=== PATIENT | male | born 2000 | race Caucasian/White ===

== ENCOUNTER → 2020-10-18 08:33 | Outpatient (CLI) | payer OTHER, SELFPAY ==
--- NOTE | ~2020-10-18 | MR_ITS ---
EXAMINATION: MR knee LT wo con DATE: 10/18/2020 09:53 INDICATION: Acute onset left knee pain TECHNIQUE: Magnetic resonance imaging (MRI) of the left knee was performed without intravenous contra st. Sequences included coronal PD-weighted FSE, coronal PD-weighted FS FSE, sagittal T2-weighted FSE , sagittal PD-weighted FS FSE and axial PD weighted fat saturated FSE. COMPARISON: None. FINDINGS: Medial compartment: Complete avulsion of the posterior root of the medial meniscus. Articular cartilage is normal. Lateral compartment: Lateral meniscus is normal. Articular cartilage is normal. Patellofemoral compartment: Articular cartilage is normal. Ligaments and tendons: Anterior and posterior cruciate ligaments are normal. The medial collateral ligament and fibular adi ateral ligament complex are normal. The extensor mechanism is normal. The visualized medial and later al hamstring tendons as well as the iliotibial band are normal. Fluid: Moderate-sized left knee joint effusion. No loose osteochondral bodies identified. Osseous/other: Marrow edema without associated fracture lines most prominent along the posterior aspect of the media l tibial plateau with small region of marrow edema along the anterior rim near the anterior root of t he medial meniscus, along the medial margin of the posterior weightbearing lateral femoral condyle an d lateral margin of the posterior weightbearing lateral femoral condyle. No fracture or pathologic ma rrow replacing process. IMPRESSION: 1. Complete avulsion of the posterior root of the medial meniscus. 2. Marrow edema without fracture lines at the anterior and posterior aspect of the medial tibial plat eau and at the margins of the posterior medial and lateral femoral condyles suggesting bone contusion s. Reviewed, dictated and finalized at location A. IMPRESSION: 1. Complete avulsion of the posterior root of the medial meniscus. 2. Marrow edema without fracture lines at the anterior and posterior aspect of the medial tibial plateau and at the margins of the posterior medial and latera l femoral condyles suggesting bone contusions.
== END ==
PROVIDERS: PCP Family Medicine; Visit Provider Orthopaedic Surgery
DX: S83.8X2A Sprain of other specified parts of left knee, initial encounter (principal); X58.XXXA Exposure to other specified factors, initial encounter
CPT/HCPCS: 73721